=== PATIENT | male | born 1990 | race American Indian/Alaskan Native ===

== ENCOUNTER 2017-04-29 14:41 | Emergency (ER) | payer SELFPAY ==
[2017-04-29 18:37] VITALS: BP 107/62
--- NOTE | 2017-04-29 18:39 | Emergency Department Report ---
- General Chief Complaint: Nausea/Vomiting/Diarrhea Stated Complaint: COLD SYMPTOMS Time Seen by Provider: 04/29/17 18:34 Source: patient Mode of arrival: Ambulatory Limitations: No Limitations - History of Present Illness Initial Comments: 26-year-old male past medical history facial surgery, smoker presents with complaint of cough runny nose and intermittent nausea with some diarrhea for 3 days. States he feels significantly better. Still has some cough. Also has some sore throat. Patient is adamant that he needs a note that he can go back to work tomorrow or his employer won't let him back to work. Patient denies any current chest pain palpitations shortness of breath muscle aches nausea vomiting. Denies abdominal pain denies dysuria or increased urinary frequency. States that his primary symptom is a dry nonproductive cough but it has gotten somewhat better in the last 2 days. Patient states he was taking TheraFlu and Tylenol at home. Patient states that his mother was recently diagnosed with influenza. Patient has no other complaints. MD Complaint: cough, rhinorrhea Onset/Timin -: days(s) Severity: mild Improves With: OTC cold medicine Context: sick contacts Associated Symptoms: myalgias, rhinorrhea, nasal congestion, cough Treatments Prior to Arrival: "cold medicine" - Related Data Previous Rx's Medication Instructions Recorded Last Taken Type ALBUTEROL Inhaler [ProAir HFA 1 puff IH Q4H PRN #1 inha 04/29/17 Unknown Rx Inhaler] Ondansetron [Zofran Odt] 4 mg PO Q8HR PRN #5 tab.rapdis 04/29/17 Unknown Rx Phenylephrine/Dm/Acetaminop/GG 10 ml PO Q6H PRN #1 liquid 04/29/17 Unknown Rx [Mucinex Zjrv-Dpk-Twpxjrjgyo Lq] Allergies Allergy/AdvReac Type Severity Reaction Status Date / Time No Known Allergies Allergy Unverified 04/29/17 14:55 ED Review of Systems ROS: Stated complaint: COLD SYMPTOMS Other details as noted in HPI Constitutional: denies: chills, fever Eyes: denies: eye pain, eye discharge, vision change ENT: congestion. denies: ear pain, throat pain Respiratory: denies: cough, shortness of breath, wheezing Cardiovascular: denies: chest pain, palpitations Endocrine: no symptoms reported Gastrointestinal: denies: abdominal pain, nausea, diarrhea Genitourinary: denies: urgency, dysuria Musculoskeletal: denies: back pain, joint swelling, arthralgia Skin: denies: rash, lesions Neurological: denies: headache, weakness, paresthesias Psychiatric: denies: anxiety, depression Hematological/Lymphatic: denies: easy bleeding, easy bruising ED Past Medical Hx - Past Medical History Previous Medical History?: No - Surgical History Past Surgical History?: No - Medications Home Medications: Home Medications Medication Instructions Recorded Confirmed Last Taken Type ALBUTEROL Inhaler [ProAir HFA 1 puff IH Q4H PRN #1 inha 04/29/17 Unknown Rx Inhaler] Ondansetron [Zofran Odt] 4 mg PO Q8HR PRN #5 tab.rapdis 04/29/17 Unknown Rx Phenylephrine/Dm/Acetaminop/GG 10 ml PO Q6H PRN #1 liquid 04/29/17 Unknown Rx [Mucinex Orbi-Lds-Jaoznwawhp Lq] ED Physical Exam - General Limitations: No Limitations General appearance: alert, in no apparent distress - Head Head exam: Present: atraumatic, normocephalic - Eye Eye exam: Present: normal appearance, PERRL, EOMI - ENT ENT exam: Present: mucous membranes moist - Neck Neck exam: Present: normal inspection - Respiratory Respiratory exam: Present: normal lung sounds bilaterally. Absent: respiratory distress - Cardiovascular Cardiovascular Exam: Present: regular rate, normal rhythm. Absent: systolic murmur, diastolic murmur, rubs, gallop - GI/Abdominal GI/Abdominal exam: Present: soft (abdomen soft nontender nondistended 4 quadrants), normal bowel sounds - Rectal Rectal exam: Present: deferred - Extremities Exam Extremities exam: Present: normal inspection - Back Exam Back exam: Present: normal inspection - Neurological Exam Neurological exam: Present: alert, oriented X3, CN II-XII intact, normal gait - Psychiatric Psychiatric exam: Present: normal affect, normal mood - Skin Skin exam: Present: warm, dry, intact, normal color. Absent: rash ED Course Vital Signs 04/29/17 14:55 Temperature 98.5 F Pulse Rate 82 Respiratory 16 Rate Blood Pressure 123/69 O2 Sat by Pulse 98 Oximetry ED Medical Decision Making - Medical Decision Making A/P: Flulike illness 1-vital signs stable, patient tolerating by mouth fluid and food without difficulty 2-symptomatic treatment 3-follow up with primary care 4-I had a discussion with pt margareth burgess, risks and side ffects of tamilflu. Pt has elected to nto take tamiflu at this time. I advised him to remain well hydrated, check his temeprature often and advised patient to return to the ED if he experiences any persistent fevers above 100.4 Fahrenheit despite Tylenol and Motrin use, inability to tolerate by mouth fluid or food by mouth, persistent nausea and vomiting, chest pain or dyspnea. Patient stated he understood this. Critical care attestation.: If time is entered above; I have spent that time in minutes in the direct care of this critically ill patient, excluding procedure time. ED Disposition Clinical Impression: Flu-like symptoms, Viral syndrome Disposition: TO HOME OR SELFCARE Is pt being admited?: No Does the pt Need Aspirin: No Condition: Stable Instructions: Viral Syndrome (ED), Influenza (ED) Prescriptions: ALBUTEROL Inhaler [ProAir HFA Inhaler] 1 puff IH Q4H PRN #1 inha PRN Reason: Cough Ondansetron [Zofran Odt] 4 mg PO Q8HR PRN #5 tab.rapdis PRN Reason: Nausea Phenylephrine/Dm/Acetaminop/GG [Mucinex Baiu-Luz-Lqhktszfej Lq] 10 ml PO Q6H PRN #1 liquid PRN Reason: Cough Referrals: [facility] [Outside] - 3-5 Days [facility] [Outside] - 3-5 Days Forms: Work/School Release Form(ED) Time of Disposition: 18:39
== END 2017-04-29 18:42 | disposition home or self-care (01) ==
LOC: ED 14:41
DX: B34.9 Viral infection, unspecified (principal); F17.200 Nicotine dependence, unspecified, uncomplicated; M79.1 Myalgia
CPT/HCPCS: 99282

== ENCOUNTER 2017-05-22 21:28 | Emergency (ER) | payer SELFPAY | END 2017-05-22 22:30 | disposition left against medical advice (07) | LOC: ED 21:28 | DX: R03.1 Nonspecific low blood-pressure reading (principal); Z53.21 Procedure and treatment not carried out due to patient leaving prior to being seen by health care provider ==

== ENCOUNTER 2019-03-01 01:32 | Emergency (ER) | payer MEDICAID ==
--- NOTE | 2019-03-01 05:58 | Emergency Department Report ---
ED General Adult HPI - General Chief complaint: Anxiety Stated complaint: NERVE PAIN Source: patient Mode of arrival: Ambulatory Limitations: No Limitations - History of Present Illness Initial comments: Patient is a 28-year-old -[place] male with a history of bipolar disorder, schizophrenia and anxiety presents to the ED with complaint of acute onset persistent diffuse body aches, generalized fatigue and "feeling cold" from walking on the street. Patient denies chest pain, shortness of breath, fever, chills, nausea, vomiting, abdominal pain. Patient states that he would like a warm place to stay because his is to call outside. MD Complaint: generalized fatigue from walking; feeling cold froma walking in cold -: week(s) (2) Location: back, upper extremity, lower extremity Radiation: non-radiation Severity scale (0 -10): 1 Quality: aching, dull Consistency: intermittent Improves with: none Worsens with: none Associated Symptoms: denies other symptoms. denies: confusion, chest pain, cough, diaphoresis, fever/chills, headaches, loss of appetite, malaise, nausea/vomiting, seizure, shortness of breath, syncope, weakness Treatments Prior to Arrival: none - Related Data Previous Rx's Medication Instructions Recorded Last Taken Type ALBUTEROL Inhaler (OR & NICU) 1 puff IH Q4H PRN #1 inha 04/29/17 Unknown Rx [ProAir HFA Inhaler] Ondansetron [Zofran Odt] 4 mg PO Q8HR PRN #5 tab.rapdis 04/29/17 Unknown Rx Phenylephrine/Dm/Acetaminop/GG 10 ml PO Q6H PRN #1 liquid 04/29/17 Unknown Rx [Mucinex Qjex-Gpz-Sbshrkkofq Lq] Allergies Allergy/AdvReac Type Severity Reaction Status Date / Time No Known Allergies Allergy Unverified 04/29/17 14:55 ED Review of Systems ROS: Stated complaint: NERVE PAIN Other details as noted in HPI Constitutional: denies: chills, fever Eyes: denies: eye pain, eye discharge, vision change ENT: denies: ear pain, throat pain Respiratory: denies: cough, shortness of breath, wheezing Cardiovascular: denies: chest pain, palpitations Endocrine: no symptoms reported Gastrointestinal: denies: abdominal pain, nausea, diarrhea Genitourinary: denies: urgency, dysuria Musculoskeletal: arthralgia, myalgia. denies: back pain, joint swelling Skin: denies: rash, lesions Neurological: denies: headache, weakness, paresthesias Psychiatric: anxiety. denies: depression, auditory hallucinations, visual hallucinations, suicidal thoughts Hematological/Lymphatic: denies: easy bleeding, easy bruising ED Past Medical Hx - Past Medical History Previous Medical History?: No - Surgical History Past Surgical History?: No - Social History Smoking Status: Current Every Day Smoker Substance Use Type: None - Medications Home Medications: Home Medications Medication Instructions Recorded Confirmed Last Taken Type ALBUTEROL Inhaler (OR & NICU) 1 puff IH Q4H PRN #1 inha 04/29/17 Unknown Rx [ProAir HFA Inhaler] Ondansetron [Zofran Odt] 4 mg PO Q8HR PRN #5 tab.rapdis 04/29/17 Unknown Rx Phenylephrine/Dm/Acetaminop/GG 10 ml PO Q6H PRN #1 liquid 04/29/17 Unknown Rx [Mucinex Ppbn-Rrz-Artwsfvmll Lq] ED Physical Exam - General Limitations: No Limitations General appearance: alert, in no apparent distress - Head Head exam: Present: atraumatic, normocephalic, normal inspection - Eye Eye exam: Present: normal appearance, PERRL, EOMI Pupils: Present: normal accommodation - ENT ENT exam: Present: normal exam, normal orophraynx, mucous membranes moist, TM's normal bilaterally, normal external ear exam - Neck Neck exam: Present: normal inspection, full ROM - Respiratory Respiratory exam: Present: normal lung sounds bilaterally. Absent: respiratory distress, wheezes, rales, rhonchi, chest wall tenderness, decreased breath sounds - Cardiovascular Cardiovascular Exam: Present: regular rate, normal rhythm, normal heart sounds. Absent: systolic murmur, diastolic murmur, rubs, gallop - GI/Abdominal GI/Abdominal exam: Present: soft, normal bowel sounds. Absent: tenderness, guarding, rebound, hyperactive bowel sounds, hypoactive bowel sounds - Extremities Exam Extremities exam: Present: normal inspection, full ROM, normal capillary refill - Back Exam Back exam: Present: normal inspection, full ROM. Absent: muscle spasm, paraspinal tenderness - Neurological Exam Neurological exam: Present: alert, oriented X3, CN II-XII intact, normal gait, reflexes normal - Psychiatric Psychiatric exam: Present: normal affect, normal mood, anxious - Skin Skin exam: Present: warm, dry, intact, normal color. Absent: rash ED Course Vital Signs 03/01/19 01:38 Temperature 98.3 F Pulse Rate 85 Respiratory 18 Rate Blood Pressure 136/84 O2 Sat by Pulse 100 Oximetry ED Medical Decision Making - Medical Decision Making This is a 28-year-old male with a history of anxiety, depression, schizophrenia and bipolar disorder and who is homeless and who presented to the ED requesting for a warm place to stay [place]istan: Outside. Patient also had complained of feeling cold with diffuse body aches because of walking all over the place in the street. In the ED, patient is alert and oriented 3 and is not in distress, not suicidal or homicidal. Patient was observed in the ED, given a meal to eat and also treated for pain with Tylenol. Patient was discharged from the ED. - Differential Diagnosis chronic fatigue; generalized weakness; anxiety Critical care attestation.: If time is entered above; I have spent that time in minutes in the direct care of this critically ill patient, excluding procedure time. ED Disposition Clinical Impression: Chronic anxiety Fatigue due to excessive exertion Qualifiers: Encounter type: initial encounter Qualified Code(s): T73.3XXA - Exhaustion due to excessive exertion, initial encounter Disposition: DC-01 TO HOME OR SELFCARE Is pt being admited?: No Does the pt Need Aspirin: No Condition: Stable Instructions: Generalized Anxiety Disorder (ED), Fatigue (ED) Additional Instructions: Take medication with food, drink plenty of fluids and follow-up with your primary care physician in 5-7 days for reevaluation, return to the ED immediately if symptoms get worse. Consider going to the group home in order to group home from the cold street environment Referrals: PRIMARY CAREMD [Primary Care Provider] - 3-5 Days Time of Disposition: 06:00 Print Language: ROMANIAN
[2019-03-01] MEDS ORDERED: ACETAMINOPHEN 325 MG TAB PO ONE (06:00)
[2019-03-01 06:35] VITALS: BP 132/80
== END 2019-03-01 06:35 | disposition home or self-care (01) ==
LOC: ED 01:32
DX: T73.3XXA Exhaustion due to excessive exertion, initial encounter (principal); F41.9 Anxiety disorder, unspecified; G89.29 Other chronic pain; F17.200 Nicotine dependence, unspecified, uncomplicated; Z79.899 Other long term (current) drug therapy; X58.XXXA Exposure to other specified factors, initial encounter
CPT/HCPCS: 99282

== ENCOUNTER 2019-10-13 04:02 | Emergency (ER) | payer MEDICAID ==
[2019-10-13 04:10] VITALS: BP 115/71
[2019-10-13 04:28] LABS: Basophils # (Auto) 0.1 K/mm3 (0.0-0.1); Basophils % (Auto) 1.1 % (0.0-1.8); Eosinophils # (Auto) 0.1 K/mm3 (0.0-0.4); Eosinophils % (Auto) 1.2 % (0.0-4.3); Hematocrit 44.1 % (35.5-45.6); Hemoglobin 14.7 gm/dl (11.8-15.2); Lymphocytes # (Auto) 2.5 K/mm3 (1.2-5.4); Lymphocytes % (Auto) 33.7 % (13.4-35.0); Mean Corpuscular HGB Conc 33 % (32-34); Mean Corpuscular Volume 87 fl (84-94); Monocytes # (Auto) 0.6 K/mm3 (0.0-0.8); Monocytes % (Auto) 8.2 % (0.0-7.3); Platelet Count 224 K/mm3 (140-440); Red Blood Count 5.07 M/mm3 (3.65-5.03); Red Cell Distribution Width 12.7 % (13.2-15.2)
[2019-10-13 04:46] LABS: Alanine Aminotransferase 10 units/L (7-56); Albumin 4.6 g/dL (3.9-5); BUN/Creatinine Ratio 17; Blood Urea Nitrogen 15 mg/dL (9-20); Calcium 9.2 mg/dL (8.4-10.2); Hemolysis Index 7
[2019-10-13 04:59] LABS: Bacteria,Urine 1+ /HPF (Negative); Bilirubin,Urine NEG (Negative); Blood,Urine NEG (Negative); Calcium Oxalate Crystals,Urine FEW; Color,Urine Yellow (Yellow); Mucus,Urine 2+ /HPF; Protein,Urine <15 mg/dL mg/dL (Negative)
--- NOTE | 2019-10-13 05:12 | Emergency Department Report ---
ED Abdominal Pain HPI - General Chief Complaint: Abdominal Pain Stated Complaint: ABD PAIN Source: patient Mode of arrival: Ambulatory Limitations: No Limitations - History of Present Illness Initial Comments: 28-year-old -[place] male with a past medical history of PTSD resents to the emergency room for abdominal pain that started this morning. Patient reports that the pain is dull has some nausea denies any vomiting or diarrhea. Patient is taken nothing for his discomfort and states that he does not take pills. Patient reports that his pain is a 5 out of 10. Patient reports he does not take any medications for his PTSD and has no known drug allergies. Patient reports is no longer has any nausea at this time. MD Complaint: abdominal pain -: This morning Location: diffuse Radiation: none Migration to: no migration Severity scale (0 -10): 5 Quality: dull Consistency: intermittent Improves With: nothing Worsens With: nothing Associated Symptoms: nausea - Related Data Allergies Allergy/AdvReac Type Severity Reaction Status Date / Time No Known Allergies Allergy Verified 10/13/19 04:07 ED Review of Systems ROS: Stated complaint: ABD PAIN Other details as noted in HPI Comment: All other systems reviewed and negative ED Past Medical Hx - Past Medical History Previous Medical History?: Yes Hx Psychiatric Treatment: Yes (PTSD) Hx Asthma: No - Surgical History Past Surgical History?: Yes Additional Surgical History: Left eye - Social History Smoking Status: Current Every Day Smoker Substance Use Type: None ED Physical Exam - General Limitations: No Limitations General appearance: alert, in no apparent distress - Head Head exam: Present: atraumatic, normocephalic - Eye Eye exam: Present: normal appearance - ENT ENT exam: Present: mucous membranes moist - Neck Neck exam: Present: full ROM - Respiratory Respiratory exam: Present: normal lung sounds bilaterally. Absent: respiratory distress - Cardiovascular Cardiovascular Exam: Present: regular rate, normal rhythm. Absent: systolic mu rmur, diastolic murmur, rubs, gallop - GI/Abdominal GI/Abdominal exam: Present: soft, tenderness. Absent: distended, guarding, rebound - Back Exam Back exam: Present: normal inspection, full ROM - Neurological Exam Neurological exam: Present: alert, oriented X3, normal gait - Psychiatric Psychiatric exam: Present: normal affect, flat affect - Skin Skin exam: Present: warm, dry, intact, normal color. Absent: rash ED Course Vital Signs 10/13/19 10/13/19 04:05 04:09 Temperature 98.1 F Pulse Rate 92 H Respiratory 18 Rate Blood Pressure 115/71 O2 Sat by Pulse 99 Oximetry ED Medical Decision Making - Lab Data Result diagrams: 10/13/19 04:12 10/13/19 04:12 Laboratory Tests 10/13/19 10/13/19 10/13/19 04:12 04:12 Unknown WBC 7.4 RBC 5.07 H Hgb 14.7 Hct 44.1 MCV 87 MCH 29 MCHC 33 RDW 12.7 L Plt Count 224 Lymph % (Auto) 33.7 Dewitt % (Auto) 8.2 H Eos % (Auto) 1.2 Baso % (Auto) 1.1 Lymph # 2.5 Dewitt # 0.6 Eos # 0.1 Baso # 0.1 Seg Neutrophils % 55.8 Seg Neutrophils # 4.1 Sodium 141 Potassium 4.2 Chloride 105.9 Carbon Dioxide 22 Anion Gap 17 BUN 15 Creatinine 0.9 Estimated GFR > 60 BUN/Creatinine Ratio 17 Glucose 97 Calcium 9.2 Total Bilirubin 0.40 AST 15 ALT 10 Alkaline Phosphatase 56 Total Protein 7.0 Albumin 4.6 Albumin/Globulin Ratio 1.9 Urine Color Yellow Urine Turbidity Clear Urine pH 5.0 Ur Specific [place] 1.032 H Urine Protein <15 mg/dl Urine Glucose (UA) Neg Urine Ketones Neg Urine Blood Neg Urine Nitrite Neg Urine Bilirubin Neg Urine Urobilinogen 4.0 Ur Leukocyte Esterase Neg Urine WBC (Auto) 1.0 Urine RBC (Auto) 2.0 U Epithel Cells (Auto) < 1.0 Urine Bacteria (Auto) 1+ Calcium Oxalate Crystal Few Urine Mucus 2+ - Medical Decision Making 28-year-old -[place] male with a past medical history of PTSD resents to the emergency room for abdominal pain that started this morning. Patient reports that the pain is dull has some nausea denies any vomiting or diarrhea. Patient is taken nothing for his discomfort and states that he does not take pills. Patient reports that his pain is a 5 out of 10. Patient reports he does not take any medications for his PTSD and has no known drug allergies. Patient reports is no longer has any nausea at this time. All labs are negative for any acute findings. Recommend to take some Tylenol for pain. Follow-up with the primary care provider. Critical care attestation.: If time is entered above; I have spent that time in minutes in the direct care of this critically ill patient, excluding procedure time. ED Disposition Clinical Impression: Nonspecific abdominal pain Disposition: DC-01 TO HOME OR SELFCARE Is pt being admited?: No Does the pt Need Aspirin: No Condition: Stable Instructions: Acute Abdominal Pain (ED) Additional Instructions: Labs are all negative for any acute findings. He can take Tylenol for pain and to follow-up with your primary care provider. Referrals: PRIMARY [facility]ARE, [Primary Care Provider] - 3-5 Days [facility] [Provider Group] - 3-5 Days [facility] [Outside] - 3-5 Days
== END 2019-10-13 05:30 | disposition home or self-care (01) ==
LOC: ED 04:02
DX: R10.84 Generalized abdominal pain (principal); R11.0 Nausea; F43.10 Post-traumatic stress disorder, unspecified; F17.200 Nicotine dependence, unspecified, uncomplicated
CPT/HCPCS: 36415; 80053; 81001; 85025; 99283

== ENCOUNTER 2019-11-08 16:34 | Emergency (ER) | payer MEDICAID ==
[2019-11-08 16:45] VITALS: BP 123/82
--- NOTE | 2019-11-08 17:20 | Emergency Department Report ---
Chief Complaint: Back Pain/Injury Stated Complaint: BACK PAIN Time Seen by Provider: 11/08/19 17:15 - HPI History of Present Illness: 29-year-old -[place] male presents to the emergency room for nontraumatic back pain for 2 days. Patient denies any trauma to his back. Patient states he has not taken anything for pain. Patient denies any past medical history review of patient's chart shows that he has a psychiatric history of PTSD. - Exam Vital Signs: Vital Signs 11/08/19 16:44 Temperature 98.0 F Pulse Rate 100 H Respiratory 16 Rate Blood Pressure 123/82 O2 Sat by Pulse 100 Oximetry Physical Exam: Patient alert and oriented x3 nontoxic in appearance no acute distress Neck full range of motion no cervical tenderness Back full range of motion no vertebral tenderness tenderness to the trapeze area. Patient is ambulatory without difficulties. MSE screening note: Focused history and physical exam performed. Due to findings the following was ordered: 29-year-old -[place] male presents to the emergency room for nontraumatic back pain for 2 days. Patient denies any trauma to his back. Patient states he has not taken anything for pain. Patient denies any past medical history review of patient's chart shows that he has a psychiatric history of PTSD. Recommend taking [id number] Tylenol or ibuprofen for pain management. ED Disposition for [facility] Disposition: - MED SCREENING EXAM-LEFT Is pt being admited?: No Does the pt Need Aspirin: No Condition: Stable Instructions: Back Pain (ED) Additional Instructions: Recommend taking [id number] Tylenol or ibuprofen for pain management. Referrals: [facility] [Provider Group] - 3-5 Days
== END 2019-11-08 17:58 | disposition left against medical advice (07) ==
LOC: ED 16:34
DX: M54.6 Pain in thoracic spine (principal); Z53.21 Procedure and treatment not carried out due to patient leaving prior to being seen by health care provider

== ENCOUNTER 2019-11-29 01:37 | Emergency (ER) | payer MEDICAID ==
[2019-11-29 03:02] VITALS: BP 122/75
--- NOTE | 2019-11-29 03:28 | Emergency Department Report ---
ED General Adult HPI - General Chief complaint: Sore Throat Stated complaint: SWALLOWED A BUG Source: patient Mode of arrival: Ambulatory Limitations: No Limitations - History of Present Illness Initial comments: Patient is a 29-year-old -Malaysian male with a history of PTSD, anxiety and bipolar who presents to the ED complaining of having swallowed an insect, and ant and would like to be evaluated because of mild sore throat 3 hours ago. Patient states that he was at home when an insect flew into his mouth and swallowed it. Patient denies abdominal pain, nausea, vomiting, headache, dizziness, syncope, chest pain, shortness of breath, change in vision or headache. Patient also denies suicidal or homicidal ideation. MD Complaint: swallowed an ant, sore throat and wants orange juice to wash it down -: Sudden, hour(s) (3) Location: mouth Radiation: non-radiation Severity scale (0 -10): 0 Quality: dull Consistency: now resolved Improves with: none Worsens with: none Associated Symptoms: denies other symptoms. denies: confusion, chest pain, cough, diaphoresis, fever/chills, headaches, loss of appetite, malaise, nausea/vomiting, rash, seizure, shortness of breath, syncope, weakness Treatments Prior to Arrival: none - Related Data Previous Rx's Medication Instructions Recorded Last Taken Type Amoxicillin [Trimox CAP] 500 mg PO BID #20 capsule 11/03/19 Unknown Rx Allergies Allergy/AdvReac Type Severity Reaction Status Date / Time No Known Allergies Allergy Verified 10/13/19 04:07 ED Review of Systems ROS: Stated complaint: SWALLOWED A BUG Other details as noted in HPI Constitutional: denies: chills, fever Eyes: denies: eye pain, eye discharge, vision change ENT: throat pain. denies: ear pain Respiratory: denies: cough, shortness of breath, wheezing Cardiovascular: denies: chest pain, palpitations Endocrine: no symptoms reported Gastrointestinal: denies: abdominal pain, nausea, diarrhea Genitourinary: denies: urgency, dysuria Musculoskeletal: denies: back pain, joint swelling, arthralgia Skin: denies: rash, lesions Neurological: denies: headache, weakness, paresthesias Psychiatric: denies: anxiety, depression Hematological/Lymphatic: denies: easy bleeding, easy bruising ED Past Medical Hx - Past Medical History Previous Medical History?: Yes Hx Psychiatric Treatment: Yes (PTSD) Hx Asthma: No - Surgical History Past Surgical History?: Yes Additional Surgical History: Left eye - Social History Smoking Status: Current Every Day Smoker Substance Use Type: None - Medications Home Medications: Home Medications Medication Instructions Recorded Confirmed Last Taken Type Amoxicillin [Trimox CAP] 500 mg PO BID #20 capsule 11/03/19 Unknown Rx ED Physical Exam - General Limitations: No Limitations General appearance: alert, in no apparent distress - Head Head exam: Present: atraumatic, normocephalic, normal inspection - Eye Eye exam: Present: normal appearance, PERRL, EOMI Pupils: Present: normal accommodation - ENT ENT exam: Present: normal exam, normal orophraynx, mucous membranes moist, TM's normal bilaterally, normal external ear exam - Neck Neck exam: Present: normal inspection, full ROM - Respiratory Respiratory exam: Present: normal lung sounds bilaterally. Absent: respiratory distress, wheezes, rales, rhonchi, chest wall tenderness, decreased breath sounds, prolonged expiratory - Cardiovascular Cardiovascular Exam: Present: regular rate, normal rhythm, normal heart sounds. Absent: systolic murmur, diastolic murmur, rubs, gallop - GI/Abdominal GI/Abdominal exam: Present: soft, normal bowel sounds. Absent: tenderness, guarding, hyperactive bowel sounds, hypoactive bowel sounds - Extremities Exam Extremities exam: Present: normal inspection, full ROM, normal capillary refill - Back Exam Back exam: Present: normal inspection, full ROM. Absent: tenderness, CVA tenderness (R), CVA tenderness (L), muscle spasm, vertebral tenderness - Neurological Exam Neurological exam: Present: alert, oriented X3, CN II-XII intact, normal gait, reflexes normal - Psychiatric Psychiatric exam: Present: normal affect, normal mood, anxious. Absent: homicidal ideation, suicidal ideation - Skin Skin exam: Present: warm, dry, intact, normal color. Absent: rash ED Course Vital Signs 11/29/19 01:47 Temperature 97.8 F Pulse Rate 97 H Respiratory 18 Rate Blood Pressure 122/75 O2 Sat by Pulse 98 Oximetry ED Medical Decision Making - Medical Decision Making This is a 29-year-old -Malaysian male with a history of PTSD, anxiety and bipolar who presents to the ED complaining of having swallowed an insect, and ant and would like to be evaluated because of mild sore throat 3 hours ago. Patient states that he was at home when an insect flew into his mouth and swallowed it. In the ED, patient is alert and oriented x3 and is not in distress but anxious, walking around in the ED and asking for orange juice to drink. Patient will discharge home and advised follow-up with his primary care physician as needed. Patient was advised return to ED immediately if symptoms get worse. - Differential Diagnosis swallowed foreign body; Sore throat Critical care attestation.: If time is entered above; I have spent that time in minutes in the direct care of this critically ill patient, excluding procedure time. ED Disposition Clinical Impression: Encounter for well adult exam without abnormal findings Swallowed foreign body Qualifiers: Encounter type: initial encounter Qualified Code(s): T18.9XXA - Foreign body of alimentary tract, part unspecified, initial encounter Disposition: DC-01 TO HOME OR SELFCARE Is pt being admited?: No Does the pt Need Aspirin: No Condition: Stable Instructions: Foreign Body Ingestion (ED) Referrals: [facility] [Provider Group] - as needed Time of Disposition: 03:28 Print Language: GEORGIAN
== END 2019-11-29 03:40 | disposition home or self-care (01) ==
LOC: ED 01:37
DX: T18.9XXA Foreign body of alimentary tract, part unspecified, initial encounter (principal); Z00.00 Encounter for general adult medical examination without abnormal findings; F43.10 Post-traumatic stress disorder, unspecified; F17.200 Nicotine dependence, unspecified, uncomplicated; Z98.890 Other specified postprocedural states; Z79.2 Long term (current) use of antibiotics; X58.XXXA Exposure to other specified factors, initial encounter; Y93.89 Activity, other specified; Y92.89 Other specified places as the place of occurrence of the external cause; Y99.8 Other external cause status
CPT/HCPCS: 99282

== ENCOUNTER 2019-11-29 23:23 | Emergency (ER) | payer MEDICAID ==
[2019-11-30 00:09] VITALS: BP 126/91
--- NOTE | 2019-11-30 02:24 | Emergency Department Report ---
ED General Adult HPI - General Chief complaint: Skin/Abscess/Foreign Body Stated complaint: CYST ON BACK Source: patient Mode of arrival: Ambulatory Limitations: No Limitations - History of Present Illness Initial comments: Patient is a 29-year-old -Malian male with history of bipolar disorder and PTSD who presents to the ED with complaint of acute onset itchy painful rash on his mid posterior thoracic area for 12 hours. Patient denies traumatic injury, nausea, vomiting, chest pain, shortness of breath, dizziness, syncope, cough, headache, abdominal pain, chest pain or shortness of breath, fever and chills. MD Complaint: Itchy rash on back -: Sudden, hour(s) (12) Location: back Radiation: non-radiation Severity scale (0 -10): 2 Quality: burning, aching Consistency: constant Improves with: none Worsens with: none Associated Symptoms: denies other symptoms, rash. denies: confusion, chest pain, cough, diaphoresis, fever/chills, headaches, loss of appetite, malaise, nausea/vomiting, seizure, shortness of breath, syncope, weakness Treatments Prior to Arrival: none - Related Data Previous Rx's Medication Instructions Recorded Last Taken Type Amoxicillin [Trimox CAP] 500 mg PO BID #20 capsule 11/03/19 Unknown Rx Allergies Allergy/AdvReac Type Severity Reaction Status Date / Time No Known Allergies Allergy Verified 10/13/19 04:07 ED Review of Systems ROS: Stated complaint: CYST ON BACK Other details as noted in HPI Constitutional: denies: chills, fever Eyes: denies: eye pain, eye discharge, vision change ENT: denies: ear pain, throat pain Respiratory: denies: cough, shortness of breath, wheezing Cardiovascular: denies: chest pain, palpitations Endocrine: no symptoms reported Gastrointestinal: denies: abdominal pain, nausea, diarrhea Genitourinary: denies: urgency, dysuria Musculoskeletal: denies: back pain, joint swelling, arthralgia Skin: rash (Erythematous maculopapular rash on mid posterior thoracic area), pruritus. denies: lesions Neurological: denies: headache, weakness, paresthesias Psychiatric: denies: anxiety, depression Hematological/Lymphatic: denies: easy bleeding, easy bruising ED Past Medical Hx - Past Medical History Previous Medical History?: Yes Hx Psychiatric Treatment: Yes (PTSD) Hx Asthma: No - Surgical History Past Surgical History?: Yes Additional Surgical History: Left eye - Social History Smoking Status: Never Smoker Substance Use Type: None - Medications Home Medications: Home Medications Medication Instructions Recorded Confirmed Last Taken Type Amoxicillin [Trimox CAP] 500 mg PO BID #20 capsule 11/03/19 Unknown Rx ED Physical Exam - General Limitations: No Limitations General appearance: alert, in no apparent distress - Head Head exam: Present: atraumatic, normocephalic, normal inspection - Eye Eye exam: Present: normal appearance, PERRL, EOMI Pupils: Present: normal accommodation - ENT ENT exam: Present: normal exam, normal orophraynx, mucous membranes moist, TM's normal bilaterally, normal external ear exam - Neck Neck exam: Present: normal inspection, full ROM - Respiratory Respiratory exam: Present: normal lung sounds bilaterally. Absent: respiratory distress, wheezes, rales, rhonchi, chest wall tenderness, accessory muscle use - Cardiovascular Cardiovascular Exam: Present: regular rate, normal rhythm, normal heart sounds. Absent: systolic murmur, diastolic murmur, rubs, gallop - GI/Abdominal GI/Abdominal exam: Present: soft, normal bowel sounds. Absent: tenderness, guarding, hyperactive bowel sounds, hypoactive bowel sounds, organomegaly - Extremities Exam Extremities exam: Present: normal inspection, full ROM, normal capillary refill - Back Exam Back exam: Present: normal inspection, full ROM. Absent: tenderness, CVA tenderness (R), CVA tenderness (L), muscle spasm, paraspinal tenderness, vertebral tenderness - Neurological Exam Neurological exam: Present: alert, oriented X3, CN II-XII intact, normal gait, reflexes normal - Psychiatric Psychiatric exam: Present: normal affect, normal mood, anxious, manic. Absent: homicidal ideation, suicidal ideation - Skin Skin exam: Present: warm, dry, intact, normal color. Absent: rash, erythema, urticaria ED Course Vital Signs 11/30/19 00:04 Temperature 98.0 F Pulse Rate 96 H Respiratory 18 Rate Blood Pressure 126/91 O2 Sat by Pulse 100 Oximetry ED Medical Decision Making - Medical Decision Making This is a 29-year-old -Malian male with history of bipolar disorder and PTSD who presents to the ED with complaint of acute onset itchy painful rash on his mid posterior thoracic area for 12 hours. In the ED, patient is alert and oriented x3 and is not in distress but anxious, walking around the room during the physical exam. The physical exam is unremarkable with no visible rashes on his mid posterior thoracic area or anywhere else. Patient was discharged home and advised follow-up with his primary care physician as needed for reevaluation or return to the ED immediately if symptoms get worse. - Differential Diagnosis Cellulitis, insect bite, allergic reaction, Critical care attestation.: If time is entered above; I have spent that time in minutes in the direct care of this critically ill patient, excluding procedure time. ED Disposition Clinical Impression: Encounter for well adult exam without abnormal findings, Itching Disposition: DC-01 TO HOME OR SELFCARE Is pt being admited?: No Does the pt Need Aspirin: No Condition: Stable Instructions: Itchy Skin (ED) Additional Instructions: Take your regular medications and follow-up with your primary care physician as needed. Referrals: [facility] [Outside] - 3-5 Days Time of Disposition: 02:24 Print Language: MEXICAN
== END 2019-11-30 02:38 | disposition home or self-care (01) ==
LOC: ED 23:23
DX: L29.9 Pruritus, unspecified (principal); R21 Rash and other nonspecific skin eruption; Z00.00 Encounter for general adult medical examination without abnormal findings; Z98.890 Other specified postprocedural states; Z79.2 Long term (current) use of antibiotics
CPT/HCPCS: 99282

== ENCOUNTER 2019-12-02 00:09 | Emergency (ER) | payer MEDICAID ==
--- NOTE | 2019-12-02 01:22 | Emergency Department Report ---
ED General Adult HPI - General Chief complaint: Upper Respiratory Infection Stated complaint: BAD WEED PUI?: No Time Seen by Provider: 12/02/19 01:16 Source: patient, EMS Mode of arrival: Ambulatory Limitations: No Limitations - History of Present Illness Initial comments: CC: " I have flulike symptoms. I think I must have smoke gemma bad weed." HPI: This is a 29-year-old male with history of schizoaffective disorder, PTSD, bipolar disorder, depression who was in contact with a person who had the flu. He has nonproductive cough and body aches. He smoked we just prior to arrival. He has dry mouth as a result. He denies suicidal or homicidal ideation. Denies auditory hallucinations. -: Gradual, days(s) (1) Severity scale (0 -10): 0 Consistency: now resolved Improves with: none Worsens with: none Associated Symptoms: other (Nonproductive cough body aches) Treatments Prior to Arrival: none - Related Data Previous Rx's Medication Instructions Recorded Last Taken Type Amoxicillin [Trimox CAP] 500 mg PO BID #20 capsule 11/03/19 Unknown Rx Allergies Allergy/AdvReac Type Severity Reaction Status Date / Time No Known Allergies Allergy Verified 10/13/19 04:07 ED Review of Systems ROS: Stated complaint: BAD WEED Other details as noted in HPI Comment: All other systems reviewed and negative Constitutional: denies: chills Respiratory: cough. denies: shortness of breath Cardiovascular: denies: chest pain Gastrointestinal: denies: abdominal pain, nausea, vomiting Psychiatric: denies: auditory hallucinations, visual hallucinations, homicidal thoughts, suicidal thoughts ED Past Medical Hx - Past Medical History Previous Medical History?: Yes Hx Psychiatric Treatment: Yes (PTSD Bipolar, depression, Shcizo) Hx Asthma: No - Surgical History Past Surgical History?: Yes Additional Surgical History: Left eye - Social History Smoking Status: Current Every Day Smoker Substance Use Type: None, Marijuana - Medications Home Medications: Home Medications Medication Instructions Recorded Confirmed Last Taken Type Amoxicillin [Trimox CAP] 500 mg PO BID #20 capsule 11/03/19 Unknown Rx ED Physical Exam - General Limitations: No Limitations General appearance: alert, in no apparent distress, other (Calm pleasant no acute distress appears nontoxic well-appearing) - Head Head exam: Present: atraumatic, normocephalic - Eye Eye exam: Present: normal appearance - ENT ENT exam: Present: mucous membranes moist - Neck Neck exam: Present: normal inspection, full ROM - Respiratory Respiratory exam: Present: normal lung sounds bilaterally. Absent: respiratory distress, wheezes, rales, rhonchi - Cardiovascular Cardiovascular Exam: Present: regular rate, normal rhythm, normal heart sounds. Absent: systolic murmur, diastolic murmur, rubs, gallop - GI/Abdominal GI/Abdominal exam: Present: soft, normal bowel sounds. Absent: distended, tenderness - Rectal Rectal exam: Present: deferred - Extremities Exam Extremities exam: Present: normal inspection - Back Exam Back exam: Present: normal inspection - Neurological Exam Neurological exam: Present: alert, oriented X3 - Psychiatric Psychiatric exam: Present: normal affect, normal mood. Absent: anxious, flat affect, manic, homicidal ideation, other - Skin Skin exam: Present: warm, dry, intact, normal color. Absent: rash ED Course Vital Signs 12/02/19 00:13 Temperature 98.1 F Pulse Rate 92 H Respiratory 18 Rate Blood Pressure 130/86 O2 Sat by Pulse 100 Oximetry ED Medical Decision Making - Medical Decision Making 1. Viral syndrome: Patient appears well. Mild subtle symptoms. Differential diagnosis includes COVID-19 infection versus influenza versus URI. Patient given verbal education. 2. Marijuana exposure no evidence of toxicity or intoxication. Critical care attestation.: If time is entered above; I have spent that time in minutes in the direct care of this critically ill patient, excluding procedure time. ED Disposition Clinical Impression: URI (upper respiratory infection), Exposure to marijuana smoke Disposition: DC- TO HOME OR SELFCARE Is pt being admited?: No Does the pt Need Aspirin: No Condition: Stable Referrals: SOBEIDA ARTIS MD [Staff Physician] - 3-5 Days
[2019-12-02 01:35] VITALS: BP 134/75
== END 2019-12-02 01:30 | disposition home or self-care (01) ==
LOC: ED 00:09
DX: J06.9 Acute upper respiratory infection, unspecified (principal); F43.11 Post-traumatic stress disorder, acute; F31.9 Bipolar disorder, unspecified; F20.89 Other schizophrenia; F17.200 Nicotine dependence, unspecified, uncomplicated; F12.10 Cannabis abuse, uncomplicated
CPT/HCPCS: 99283

== ENCOUNTER 2019-12-10 17:13 | Emergency (ER) | payer MEDICAID ==
[2019-12-10 17:23] VITALS: BP 119/94
== END 2019-12-10 17:30 | disposition left against medical advice (07) ==
LOC: ED 17:13
DX: Z53.21 Procedure and treatment not carried out due to patient leaving prior to being seen by health care provider (principal)

== ENCOUNTER 2019-12-13 20:17 | Emergency (ER) | payer MEDICAID | END 2019-12-13 22:00 | disposition left against medical advice (07) | LOC: ED 20:17 | DX: R56.9 Unspecified convulsions (principal); Z53.21 Procedure and treatment not carried out due to patient leaving prior to being seen by health care provider ==

== ENCOUNTER 2020-01-12 02:45 | Emergency (ER) | payer MEDICAID | END 2020-01-12 02:53 | disposition left against medical advice (07) | LOC: ED 02:45 | DX: R19.7 Diarrhea, unspecified (principal); Z53.21 Procedure and treatment not carried out due to patient leaving prior to being seen by health care provider ==

== ENCOUNTER 2020-02-08 00:28 | Emergency (ER) | payer MEDICAID ==
[2020-02-08 00:40] VITALS: BP 135/92
== END 2020-02-08 05:24 ==
LOC: ED 00:28
DX: T63.441A Toxic effect of venom of bees, accidental (unintentional), initial encounter (principal); Z53.21 Procedure and treatment not carried out due to patient leaving prior to being seen by health care provider; Y92.89 Other specified places as the place of occurrence of the external cause

== ENCOUNTER 2020-02-19 03:08 | Emergency (ER) | payer MEDICAID ==
[2020-02-19 05:02] VITALS: BP 126/85
== END 2020-02-19 06:30 | disposition left against medical advice (07) ==
LOC: ED 03:08
DX: R09.89 Other specified symptoms and signs involving the circulatory and respiratory systems (principal); Z53.21 Procedure and treatment not carried out due to patient leaving prior to being seen by health care provider

== ENCOUNTER 2020-03-06 14:27 | Emergency (ER) | payer MEDICAID ==
[2020-03-06 15:12] VITALS: BP 123/79
--- NOTE | 2020-03-06 16:54 | Emergency Department Report ---
Chief Complaint: Upper Respiratory Infection Stated Complaint: FLU SYMPTOMS - HPI History of Present Illness: 29-year-old -Polish male presents to the emergency room reporting he has a cold for 1 week. Patient is taken nothing for symptoms. Patient denies any fever chills no nausea no vomiting no chest pain or shortness of breath. Patient also reports of left shoulder aches intermittently. Denies any injury. - Exam Vital Signs: Vital Signs 03/06/20 15:11 Temperature 98.1 F Pulse Rate 85 Respiratory 14 Rate Blood Pressure 123/79 O2 Sat by Pulse 98 Oximetry Physical Exam: Gen: alert oriented NAD Cardic: regular rate and rhythm no murmurs appreciated Resp: Clear to auscultation bilateral no wheezing no rales or rhonchi. Abdomen: Soft nontender nondistended normal bowel sounds. Mini neuro: Romberg neg, strengh 4/5 all extrimities, Alert and oriented time 3 Crainal nerve II-IIX intact MSE screening note: Focused history and physical exam performed. Due to findings the following was ordered: 29-year-old -Polish male presents to the emergency room reporting he has a cold for 1 week. Patient is taken nothing for symptoms. Patient denies any fever chills no nausea no vomiting no chest pain or shortness of breath. Patient also reports of left shoulder aches intermittently. Denies any injury. Recommend patient to take [id number]-ecjrhar ibuprofen Tylenol Claritin or Robitussin. Increase his water intake follow-up primary care provider. ED Disposition for MSE Disposition: Z- MED SCREENING EXAM-LEFT Is pt being admited?: No Does the pt Need Aspirin: No Condition: Stable Additional Instructions: Try taking Tylenol, Robitussin or Claritin. You can also try ibuprofen increase your fluid intake. Referrals: PRIMARY [facility]ARE [Primary Care Provider] - 3-5 Days [facility] [Provider Group] - 3-5 Days
== END 2020-03-06 17:33 | disposition left against medical advice (07) ==
LOC: ED 14:27
DX: J00 Acute nasopharyngitis [common cold] (principal); Z53.21 Procedure and treatment not carried out due to patient leaving prior to being seen by health care provider

== ENCOUNTER 2020-03-27 05:16 | Emergency (ER) | payer MEDICAID ==
[2020-03-27 06:26] VITALS: BP 136/76
--- NOTE | 2020-03-27 07:15 | Emergency Department Report ---
HPI - General Chief Complaint: Medical Clearance Time Seen by Provider: 03/27/20 07:03 - [facility] HPI: Room 45 The patient is a 29-year-old male present with a chief complaint of "questions about my blood pressure." The patient states he came to the emergency department because he had questions about his blood pressure. The patient states he was told previously that his blood pressure was too low and he wants to know what his blood pressure is currently. The patient exhibits flight of ideas at times but denies suicidal homicidal ideation. Patient denies visual hallucinations. ED Past Medical Hx - Past Medical History Hx Psychiatric Treatment: Yes (PTSD, Bipolar, depression, Schizo) - Surgical History Additional Surgical History: Left eye - Family History Family history: no significant - Social History Smoking Status: Current Every Day Smoker (1 pack/day) Substance Use Type: Alcohol (Rarely), Marijuana, Methamphetamines - Medications Home Medications: Home Medications Medication Instructions Recorded Confirmed Last Taken Type Amoxicillin [Trimox CAP] 500 mg PO BID #20 capsule 11/03/19 Unknown Rx ED Review of Systems ROS: Stated complaint: BLOOD PRESSURE GOES UP AND DOWN Other details as noted in HPI Constitutional: no symptoms reported Eyes: denies: eye pain ENT: denies: throat pain Respiratory: no symptoms reported Cardiovascular: denies: chest pain Endocrine: no symptoms reported Gastrointestinal: denies: abdominal pain Musculoskeletal: denies: back pain Neurological: denies: headache Psychiatric: denies: visual hallucinations, homicidal thoughts, suicidal thoughts Physical Exam - Physical Exam Vital Signs: Vital Signs 03/27/20 05:26 Temperature 97.3 F L Pulse Rate 97 H Respiratory 18 Rate Blood Pressure 136/76 [Right] O2 Sat by Pulse 98 Oximetry Physical Exam: GENERAL: The patient is well-developed well-nourished male sitting in chair not appearing to be in acute distress HEENT: Normocephalic. Atraumatic. Extraocular motions are intact. Patient has moist mucous membranes. NECK: Supple. Trachea midline CHEST/LUNGS: Clear to auscultation. There is no respiratory distress noted. HEART/CARDIOVASCULAR: Regular. There is no tachycardia. There is no gallop rub or murmur. ABDOMEN: Abdomen is soft, nontender. Patient has normal bowel sounds. There is no abdominal distention. SKIN: There is no rash. There is no edema. There is no diaphoresis. NEURO: The patient is awake, alert, and oriented. The patient is cooperative. The patient has normal speech MUSCULOSKELETAL: There is no evidence of acute injury. ED Course Vital Signs 03/27/20 05:26 Temperature 97.3 F L Pulse Rate 97 H Respiratory 18 Rate Blood Pressure 136/76 [Right] O2 Sat by Pulse 98 Oximetry ED Medical Decision Making - Lab Data Result diagrams: 03/27/20 07:13 03/27/20 07:13 - Differential Diagnosis Schizophrenia Critical care attestation.: If time is entered above; I have spent that time in minutes in the direct care of this critically ill patient, excluding procedure time. ED Disposition Clinical Impression: Schizophrenia Disposition: DC-01 TO HOME OR SELFCARE Is pt being admited?: No Does the pt Need Aspirin: No Condition: Stable Additional Instructions: OUTPATIENT MENTAL HEALTH RESOURCES [facility], [facility] Silver Ruggiero MD: [address] [facility] [address] [place] [address] [place] [address] [facility]: [employer] [address] [place] [address] [place] [address] [phone] [facility]: [facility]: [address] [facility] [place] [address] [facility] [address] [facility]: John Barragan MD: [address] [facility] [address] [facility] [id number] [facility]: [address] [place], [place] [id number] [phone] SUBSTANCE ABUSE PROGRAMS: [facility]: Location: [place], [place] [facility] Address: [address] [place] [address] [facility]: Address: [address] [place] [id number] [facility]: Address: [address] [place] [address] [facility]: Address: [address] [place] [address] [facility] Address: [address] [place] [address]. Please contact above numbers to attempt placement into free based program. Medicaid Programs: [facility]: Address: [address] [facility], [place] [address] [facility]: Address: [address] [place] [id number] [place] [facility]ESS LINE: Referrals: PRIMARY CARE, [Primary Care Provider] - 3-5 Days Time of Disposition: 11:59
[2020-03-27 07:26] LABS: Basophils % (Auto) 0.6 % (0.0-1.8); Eosinophils % (Auto) 0.4 % (0.0-4.3); Hematocrit 46.5 % (35.5-45.6); Hemoglobin 15.6 gm/dl (11.8-15.2); Lymphocytes # (Auto) 1.5 K/mm3 (1.2-5.4); Lymphocytes % (Auto) 25.9 % (13.4-35.0); Mean Corpuscular HGB Conc 34 % (32-34); Mean Corpuscular Volume 86 fl (84-94); Monocytes # (Auto) 0.4 K/mm3 (0.0-0.8); Monocytes % (Auto) 7.8 % (0.0-7.3); Platelet Count 191 K/mm3 (140-440); Red Blood Count 5.42 M/mm3 (3.65-5.03); Red Cell Distribution Width 12.9 % (13.2-15.2)
[2020-03-27 07:46] LABS: BUN/Creatinine Ratio 12; Blood Urea Nitrogen 11 mg/dL (9-20); Calcium 9.4 mg/dL (8.4-10.2); Hemolysis Index 6
[2020-03-27 09:19] LABS: Bilirubin,Urine NEG (Negative); Blood,Urine NEG (Negative); Color,Urine Yellow (Yellow); Mucus,Urine FEW /HPF; Protein,Urine <15 mg/dL mg/dL (Negative); Urobilinogen,Urine < 2.0 mg/dL (<2.0)
[2020-03-27 09:26] LABS: Benzodiazepines Screen,Urine Negative; Cannabinoid Screen,Urine Negative; Cocaine Screen,Urine Negative; Methadone Screen,Urine Negative; Opiate Screen,Urine Negative
[2020-03-27 09:52] LABS: Amphetamine Screen,Urine PRESUMPTIVE POSITIVE
--- NOTE | 2020-03-27 10:28 | Consultation ---
History of Present Illness - Reason for Consult Consult date: 03/27/20 Reason for consult: flight of ideas - History of Present Psychiatric Illness Kj Lebron is a 29y/o male patient who presented to the ER for low blood pressure. At that time it is documented that the patient was having flight of ideas. During my interview with the patient this morning, he is calm, cooperative and pleasant. He is a/o x 3. When asking the patient what brought him to the hospital, he stated he was having issues his his blood pressure. He says "I felt it was my blood pressure because I was having chest and arm pain." The patient says he has a history of "schizophrenia and bipolar." He says "but I don't have any problems with that right now. It's under control." He says he c urrently takes "invega once a month." The patient does verbalize hallucinations that he says he's been "hearing since I was about 15." He says "they never go away. I know how to control them." The patient says "really they are more of thoughts in my head." The patient denies the voices being anything negative or command in nature. He says "I don't want to hurt nobody. Myself. Nobody." He says "the voices would be worse if I wasn't on the Invega." The patient also verbalizes using "meth." The patient describes his mood as "good." He denies any problems with sleep or appetite. The patient asks me if we could give him a transportation pass. PAST PSYCHIATRIC HISTORY Diagnoses: schizophrenia, bipolar Suicide attempts or Self-harm behavior: Denies Prior psychiatric hospitalizations: Yes Substance Abuse history: Meth Previous psychiatric medications tried: Invega injection Outpatient treatment: Yes PAST MEDICAL HISTORY: None reported Family Psychiatric History: None reported or documented SOCIAL HISTORY Marital Status: Living Arrangements: correction Employment Status: Unemployed Access to guns/weapons: Denies Education: High school diploma, Trade school History of Abuse: None reported Legal History: denies REVIEW OF SYSTEMS Constitutional: Negative for weight loss ENT: Negative for stridor Respiratory: Negative for cough or hemoptysis All other systems reviewed and are negative MENTAL STATUS EXAMINATION General Appearance and Behavior: Age appropriate, good hygiene, wearing appropriate clothes, good eye contact, calm and cooperative Cooperation: Participating/engaged Psychomotor Behavior: Psychomotor normal Mood: "good" Affect and affective range: congruent with stated mood Thought Process: Goal directed Thought Content: Hallucinations Speech: Normal rate, volume and rhythm Suicidal Ideation: Denies Homicidal Ideation: Denies Hallucinations: auditory Delusions: None elicited Impulse Control: Impaired Insight and Judgment: Normal insight and judgment Memory: Normal Attention: Normal Orientation: Alert, oriented Assessment and Plan (1) Schizophrenia (2) Amphetamine Use Disorder Treatment Advised patient to discuss with his outpatient psych possible increase in med or adjunct therapy No meds prescribed at this time. Continue med prescribed by outpatient psychiatry. Sitter: Defer to primary Medical: Per primary Disposition: Do not recommend acute psychiatric inpatient treatment at this time. The patient is to abstain from all illicit drug use. He is to follow up with outpatient psych in 7 to 14 days upon discharge. The double needle operator lockstitch is to give the patient drug rehab, therapy and transportation pass Will sign off. Thank you for this consult. Case staffed with Dr. Lombardo. Medications and Allergies Allergies Allergy/AdvReac Type Severity Reaction Status Date / Time Penicillins Allergy Unknown Verified 03/27/20 05:21 Home Medications Medication Instructions Recorded Confirmed Last Taken Type Amoxicillin [Trimox CAP] 500 mg PO BID #20 capsule 11/03/19 Unknown Rx Mental Status Exam - Vital signs Last Vital Signs Temp 97.3 F L 03/27/20 05:26 Pulse 97 H 03/27/20 05:26 Resp 18 03/27/20 05:26 BP 136/76 03/27/20 05:26 Pulse Ox 98 03/27/20 05:26 Results Result Diagrams: 03/27/20 07:13 03/27/20 07:13 Abnormal lab results 03/27/20 03/27/20 03/27/20 Range/Units 07:13 07:13 07:13 RBC 5.42 H (3.65-5.03) M/mm3 Hgb 15.6 H (11.8-15.2) gm/dl Hct 46.5 H (35.5-45.6) % RDW 12.9 L (13.2-15.2) % [place] % (Auto) 7.8 H (0.0-7.3) % Glucose 106 H (75-100) mg/dL Salicylates < 0.3 L (2.8-20.0) mg/dL Acetaminophen (10.0-30.0) ug/mL 03/27/20 Range/Units 07:13 RBC (3.65-5.03) M/mm3 Hgb (11.8-15.2) gm/dl Hct (35.5-45.6) % RDW (13.2-15.2) % [place] % (Auto) (0.0-7.3) % Glucose (75-100) mg/dL Salicylates (2.8-20.0) mg/dL Acetaminophen 5.0 L (10.0-30.0) ug/mL All other labs normal.
== END 2020-03-27 12:26 | disposition home or self-care (01) ==
LOC: ED 05:16
DX: F20.9 Schizophrenia, unspecified (principal); F31.9 Bipolar disorder, unspecified; F17.200 Nicotine dependence, unspecified, uncomplicated; F12.10 Cannabis abuse, uncomplicated; Z98.890 Other specified postprocedural states; Z79.1 Long term (current) use of non-steroidal anti-inflammatories (NSAID); Z88.0 Allergy status to penicillin
CPT/HCPCS: 36415; 80048; 80307; 80320; 81001; 85025; G0480

== ENCOUNTER 2020-04-01 22:28 | Emergency (ER) | payer MEDICAID ==
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
[2020-04-02 01:54] VITALS: BP 116/74
== END 2020-04-02 01:00 | disposition home or self-care (01) ==
LOC: ED 22:28
DX: T74.21XA Adult sexual abuse, confirmed, initial encounter (principal); K62.89 Other specified diseases of anus and rectum; F17.200 Nicotine dependence, unspecified, uncomplicated; F12.10 Cannabis abuse, uncomplicated; Z98.890 Other specified postprocedural states; F31.9 Bipolar disorder, unspecified; Z79.2 Long term (current) use of antibiotics; Z88.0 Allergy status to penicillin; Y07.9 Unspecified perpetrator of maltreatment and neglect
CPT/HCPCS: 99282

== ENCOUNTER 2020-04-13 05:24 | Emergency (ER) | payer MEDICAID ==
--- NOTE | 2020-04-13 05:33 | Emergency Department Report ---
Blank Doc - Documentation Documentation: 29-year-old male that presents with abdominal pain with n/v. Also stated has cough and body aches. Tachycardia in triage. 1- This initial assessment/diagnostic orders/clinical plan/ treatment(s) is/are subject to change based on pt's health status, clinical progression and re- assessment by fellow clinical providers in the ED. Further treatment and workup at subsequent clinical provers discretion. Patient/guardians urged not to elope from ED as their condition may be serious if not clinically assessed and managed. 2-labs 3-UA
[2020-04-13 05:35] VITALS: BP 131/89
[2020-04-13] MEDS ORDERED: ONDANSETRON 4 MG ODT TAB PO ONE (06:12)
--- NOTE | 2020-04-13 06:12 | XRay Report ---
CHEST 2 VIEWS 0559 INDICATION / CLINICAL INFORMATION: cough COMPARISON: None available. FINDINGS: SUPPORT DEVICES: None. HEART / MEDIASTINUM: No significant abnormality. LUNGS / PLEURA: No significant pulmonary or pleural abnormality. No pneumothorax. ADDITIONAL FINDINGS: No significant additional findings. IMPRESSION: No significant acute abnormality Signer Name: Emmett Dumont MD Signed: 04/13/2020 6:07 AM Workstation Name: [id number]
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
[2020-04-13 06:16] LABS: Hematocrit 46.9 % (35.5-45.6); Hemoglobin 15.9 gm/dl (11.8-15.2); Mean Corpuscular HGB Conc 34 % (32-34); Mean Corpuscular Volume 84 fl (84-94); Platelet Count 201 K/mm3 (140-440); Red Blood Count 5.56 M/mm3 (3.65-5.03); Red Cell Distribution Width 12.8 % (13.2-15.2)
[2020-04-13 06:18] LABS: Basophils % (Auto) 0.7 % (0.0-1.8); Eosinophils # (Auto) 0.1 K/mm3 (0.0-0.4); Eosinophils % (Auto) 1.7 % (0.0-4.3); Lymphocytes # (Auto) 2.2 K/mm3 (1.2-5.4); Lymphocytes % (Auto) 47.6 % (13.4-35.0); Monocytes # (Auto) 0.8 K/mm3 (0.0-0.8); Monocytes % (Auto) 8.5 % (0.0-7.3)
[2020-04-13 06:21] LABS: Bilirubin,Urine NEG (Negative); Blood,Urine NEG (Negative); Color,Urine Yellow (Yellow); Mucus,Urine 2+ /HPF; Protein,Urine <15 mg/dL mg/dL (Negative)
[2020-04-13 06:36] LABS: Alanine Aminotransferase 21 units/L (7-56); Albumin 4.2 g/dL (3.9-5); BUN/Creatinine Ratio 17; Blood Urea Nitrogen 19 mg/dL (9-20); Calcium 9.1 mg/dL (8.4-10.2); Hemolysis Index 9
== END 2020-04-13 06:51 | disposition home or self-care (01) ==
LOC: ED 05:24
DX: R11.2 Nausea with vomiting, unspecified (principal); F25.0 Schizoaffective disorder, bipolar type; F17.200 Nicotine dependence, unspecified, uncomplicated; Z98.890 Other specified postprocedural states; Z79.2 Long term (current) use of antibiotics; Z88.0 Allergy status to penicillin
CPT/HCPCS: 36415; 71046; 80053; 81001; 83690; 85025; Q0162

== ENCOUNTER 2020-04-27 00:58 | Emergency (ER) | payer MEDICAID | END 2020-04-27 03:00 | disposition left against medical advice (07) | LOC: ED 00:58 | DX: M54.6 Pain in thoracic spine (principal); Z53.21 Procedure and treatment not carried out due to patient leaving prior to being seen by health care provider ==